=== PATIENT | female | born 1980 | race Caucasian/White ===

== ENCOUNTER → 2016-08-15 | Outpatient (REF) | LOC: ZLAB.WCH 16:53 | DX: Z01.89 Encounter for other specified special examinations (principal) ==

== ENCOUNTER → 2016-11-06 | Outpatient (REF) | LOC: ZLAB.WCH 18:00 | DX: Z01.89 Encounter for other specified special examinations (principal) ==

== ENCOUNTER 2017-10-30 13:09 | Outpatient (RCR) | payer OTHER | END 2017-11-29 | disposition home or self-care (01) | LOC: WSOH | DX: S80.02XA Contusion of left knee, initial encounter (principal); Y04.0XXA Assault by unarmed brawl or fight, initial encounter; W01.0XXA Fall on same level from slipping, tripping and stumbling without subsequent striking against object, initial encounter; Y99.0 Civilian activity done for income or pay ==

== ENCOUNTER → 2017-11-26 | Outpatient (CLI) | payer OTHER | LOC: COL.RAD 07:09 | DX: M17.12 Unilateral primary osteoarthritis, left knee (principal); M94.8X6 Other specified disorders of cartilage, lower leg; S83.012A Lateral subluxation of left patella, initial encounter ==

== ENCOUNTER 2017-11-30 09:29 | Outpatient (RCR) | payer OTHER | END 2017-12-01 09:13 | disposition home or self-care (01) | LOC: WSOH 09:29 | DX: S80.02XD Contusion of left knee, subsequent encounter (principal); Y04.2XXD Assault by strike against or bumped into by another person, subsequent encounter; Y99.0 Civilian activity done for income or pay; Z79.899 Other long term (current) drug therapy ==

== ENCOUNTER 2019-06-03 17:09 | Emergency (ER) | payer BC ==
[~2019-06-03] VITALS: Ht 167.6 cm; Wt 145.9 kg
[2019-06-03 17:12] VITALS: TEMP 97.6
[2019-06-03] MEDS ORDERED: LOPRESSOR 225 MG/TAB PO (17:16)
[2019-06-03] MEDS ORDERED: TOPAMAX50 MG PO (17:32)
[2019-06-03] MEDS ORDERED: DEPACON100 MG/ML (17:32)
[2019-06-03] MEDS ORDERED: PROAIR HFA0.09 MG/AC IH (17:33)
[2019-06-03] MEDS ORDERED: K-DUR20 MEQ PO (17:33)
[2019-06-03] MEDS ORDERED: BONINE25 MG PO (17:33)
[2019-06-03] MEDS ORDERED: LAMICTAL 100MG100 MG PO (17:37)
[2019-06-03] MEDS ORDERED: VITAMIND3 5000 (17:39)
[2019-06-03] MEDS ORDERED: KETOROLAC TROMETHAMI (17:39)
[2019-06-03] MEDS ORDERED: FIORICET 325 MG1 TA1 PO (17:40)
[2019-06-03] MEDS ORDERED: RESTORIL30 MG (17:41)
[2019-06-03] MEDS ORDERED: TIROSINT150 MC1 PO (17:41)
[2019-06-03] MEDS ORDERED: XALATAN EYE DROPS OD (17:42)
[2019-06-03] MEDS ORDERED: REMERON 15M15 MG/TA1 PO (17:42)
[2019-06-03] MEDS ORDERED: CYMBALTA 30MG30 MG PO (17:42)
[2019-06-03 18:12] LABS: BASO # 0.1 (0.0-0.2); BASO % 0.7 % (0.0-2.0); EOS # 0.4 (0.0-0.7); EOS % 5.7 % (0-4.0); GRAN # 3.5 (1.4-6.5); GRAN % 50.6 % (42.2-75.2); HEMOGLOBIN 12.7 g/dl (12.5-16.0); LYMPH # 2.5 (1.2-3.4); LYMPH % 35.7 % (20.0-51.0); MEAN CELL VOLUME 92 fl (80.0-100.0); MEAN CORPUSCULAR HEMOGLOBIN 31 pg (27.0-31.0); MEAN CORPUSCULAR HGB CONC 33 g/dl (33.0-37.0); MEAN PLATELET VOLUME 9.6 fl (7.4-10.4); MONO # 0.5 (0.1-0.6); MONO % 6.7 % (1.7-9.3); PLATELET COUNT 210 K/mm3 (130-400); RED BLOOD COUNT 4.15 M/mm3 (4.10-5.30); REDCELL DISTRIBUTION WIDTH-CV 14.4 % (11.5-14.5)
[2019-06-03 18:19] LABS: ALBUMIN 4.1 gm/dL (3.5-5.0); BILIRUBIN,TOTAL 0.4 mg/dL (0.0-1.0); CALCIUM 9.2 mg/dL (8.4-10.2); CREATININE, serum 0.79 (0.52-1.25); POTASSIUM 3.7 mmol/L (3.4-5.0); TOTAL PROTEIN 7.2 gm/dL (6.4-8.2)
[2019-06-03 18:49] LABS: TSH w REFLEX 6.93 uIU/mL (0.465-4.680)
[2019-06-03 19:13] VITALS: BP 138/89; PULSE 91
== END 2019-06-03 19:13 | disposition home or self-care (01) ==
LOC: COL.ER 17:09
PROVIDERS: Nurse Practitioner
DX: I10 Essential (primary) hypertension (principal); F32.9 Major depressive disorder, single episode, unspecified; F41.9 Anxiety disorder, unspecified; J45.909 Unspecified asthma, uncomplicated; Z88.1 Allergy status to other antibiotic agents; Z88.2 Allergy status to sulfonamides; Z90.89 Acquired absence of other organs; G43.909 Migraine, unspecified, not intractable, without status migrainosus